=== PATIENT | male | born 1995 | race Caucasian/White ===

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

== ENCOUNTER 2018-07-05 16:47 | Emergency (ER) | payer SELFPAY ==
[~2018-07-05] VITALS: Wt 89.1 kg
[~2018-07-05 16:47] MED LIST changes: +ALBU8.5H8 INH; +GUAI120S25 PO; +IBUP-1542 PO
[2018-07-05 16:50] VITALS: BP 130/76; PULSE 94; RESP 18
[2018-07-05] MEDS ORDERED: NAPR-985 PO (18:52)
--- NOTE | 2018-07-05 21:57 | ERD ---
ER Documentation Chief Complaint Chief Complaint RIGHT HAND PAIN HPI 23-year-old male presenting to the emergency department complaining of right wrist pain after a fall earlier today while playing basketball. He denies any head injury or loss of consciousness. Pain is worse with movement and rated moderate to severe. He took no medication for relief of symptoms. No other symptoms or injuries or complaints reported at this time. ROS All systems reviewed and are negative except as per history of present illness. Medications Home Meds Active Scripts Naproxen* (Naprosyn*) 500 Mg Tablet, 500 MG PO BID PRN for PAIN AND/OR INFLAMMATION, #30 TAB Prov:CHAGO MCCARTY PA-C 07/05/18 Ibuprofen* (Motrin*) 600 Mg Tab, 600 MG PO Q6H PRN for PAIN AND OR ELEVATED TEMP, #30 TAB Prov:PONCE LEE NP 08/10/16 Cetirizine Hcl* (Zyrtec*) 10 Mg Capsule, 10 MG PO DAILY, #30 TAB.CHEW Prov:PONCE LEE NP 08/10/16 Nsijxszaspb-D-Buyeopfldy Hb* (Guaifenesin* DM Syrup) 120 Ml Syrup, 10 ML PO Q4H PRN for COUGH, #120 ML Prov:PONCE LEE NP 08/10/16 Albuterol Sulfate* (Proair HFA*) 8.5 Gm Hfa.aer.ad, 2 PUFF INH Q4, #1 INHALER w/ aerochamber and mask Prov:PONCE LEE NP 08/10/16 Sodium Chloride (Saline Nasal [place]) 30 Ml [place], 30 ML NS BID for NASAL CONGESTION, #1 SPRAY Prov:RUFINA ONEIL PA-C 04/15/16 Cetirizine Hcl* (Zyrtec*) 10 Mg Capsule, 10 MG PO DAILY, #30 TAB.CHEW Prov:RUFINA ONEIL PA-C 04/15/16 Allergies Allergies: Coded Allergies: No Known Allergy (Unverified , 08/10/16) PMhx/Soc History of Surgery: Yes (LT KNEE 2011) Anesthesia Reaction: No Hx Neurological Disorder: No Hx Respiratory Disorders: No Hx Cardiac Disorders: No Hx Psychiatric Problems: No Hx Miscellaneous Medical Probl: No Hx Alcohol Use: No Hx Substance Use: Yes (marijuana earlier today) Hx Tobacco Use: Yes FmHx Family History: No diabetes Physical Exam Vitals Vital Signs Date Temp Pulse Resp B/P (MAP) Pulse Ox O2 O2 Flow FiO2 Time Delivery Rate 07/05/18 98.1 94 18 130/76 99 16:50 (94) Physical Exam Const: No acute distress Head: Atraumatic Eyes: Normal Conjunctiva ENT: Normal External Ears, Nose and Mouth. Neck: Full range of motion. No meningismus. Resp: No respiratory distress. Skin: No petechiae or rashes Back: No midline or flank tenderness Ext: Tenderness palpation of the radial and ulnar aspect of the right wrist. No obvious deformity. 2+ radial pulses. Patient is neurovascularly intact di stally. Limited range of motion of the right wrist secondary to pain. Neur: Awake and alert Psych: Normal Mood and Affect Results 24 hrs [place] [id number] Radiology Main Line: [phone] DIAGNOSTIC IMAGING REPORT Patient: MARCY DIAS : 1995 Age: 23 Sex: M MR #: [id number] DOS: 07/05/18 0000 Ordering MD: CHAGO MCCARTY PA-C Location: E/R Room/Bed: PROCEDURE: Right wrist x-ray CLINICAL INDICATION: Trauma TECHNIQUE: AP, lateral and oblique views of the wrist were obtained. COMPARISON: None FINDINGS: There is normal mineralization. No acute fracture or dislocation is seen. There are no significant degenerative changes. There is no significant soft tissue swelling. IMPRESSION: Normal x-ray of the right wrist. .Jonn Carcamo MD, Date Time Electronically viewed and signed by .Jonn Carcamo MD, on 07/05/2018 18:24 .A/ CC: CHAGO MCCARTY PA-C [id number] Procedures/MDM 23-year-old male presenting to the emergency department with history, physical examination, work-up most consistent with right wrist sprain. Patient had no snuffbox tenderness. X-ray of the right wrist show no evidence of fracture and the full report interpreted by the radiologist may be viewed above. Patient was placed in Francisco wrap for comfort.Splint Assessment: Neurovascularly intact post splint placement with good fit. Patient's extremity symptoms have stabilized while they have been evaluated in the department and are appropriate for outpatient follow up. No evidence of compartment syndrome, neurologic injury, vascular injury, open joint, open fracture, tendon laceration, or foreign body. No evidence of life- threatening pathology at time of discharge. Pt/family in agreement with discharge plan/diagnosis. Pt/family advised to return immediately with any new or worsening symptoms. Follow-up with primary care physician within the next 1- 2 days. Departure Diagnosis: Primary Impression: Right wrist sprain Condition: Fair Patient Instructions: Wrist Sprain Referrals: [facility] YOU HAVE RECEIVED A MEDICAL SCREENING EXAM AND THE RESULTS INDICATE THAT YOU DO NOT HAVE A CONDITION THAT REQUIRES URGENT TREATMENT IN THE EMERGENCY DEPARTMENT. FURTHER EVALUATION AND TREATMENT OF YOUR CONDITION CAN WAIT UNTIL YOU ARE SEEN IN YOUR DOCTORS OFFICE WITHIN THE NEXT 1-2 DAYS. IT IS YOUR RESPONSIBILITY TO MAKE AN APPOINTMENT FOR FOLOW-UP CARE. IF YOU HAVE A PRIMARY DOCTOR --you should call your primary doctor and schedule an appointment IF YOU DO NOT HAVE A PRIMARY DOCTOR YOU CAN CALL OUR PHYSICIAN REFERRAL HOTLINE AT IF YOU CAN NOT AFFORD TO SEE A PHYSICIAN YOU CAN CHOSE FROM THE FOLLOWING CO [facility] [address] [email or web address]. [facility] [address] [facility]. [facility] [address] [facility] [address] [facility]. [facility] [address] [facility]. [facility]. [address] Additional Instructions: Call your primary care doctor TOMORROW for an appointment during the next 1-2 days.See the doctor sooner or return here if your condition worsens before your appointment time. CHAGO MCCARTY PA-C July 05, 2018 21:57
== END 2018-07-05 18:53 | disposition home or self-care (01) ==
LOC: E/R 16:47
DX: S63.501A Unspecified sprain of right wrist, initial encounter (principal); W18.39XA Other fall on same level, initial encounter; Y92.310 Basketball court as the place of occurrence of the external cause; Z87.891 Personal history of nicotine dependence